=== PATIENT | male | born 1965 | race Hispanic/Latino ===

== ENCOUNTER 2019-05-28 05:55 | Day surgery (SDC) | payer OTHER ==
[2019-05-28] MEDS ORDERED: NACL 0.9% 1000 ML 1,000 ML IV SCH (07:00)
[2019-05-28] MEDS ORDERED: WATER FOR IRRIG STERILE ONE (07:25)
[2019-05-28] MEDS ORDERED: WATER FOR IRRIG STERILE IR ONE (07:25)
--- NOTE | 2019-05-28 07:44 | Anesthesia Consultation ---
Anesthesia Consult and Med Hx Date of service: 05/28/19 - Airway Anesthetic Teeth Evaluation: Good ROM Head & Neck: Adequate Mental/Hyoid Distance: Adequate Mallampati Class: Class III Intubation Access Assessment: Probably Good - Pulmonary Exam CTA: Yes - Cardiac Exam Cardiac Exam: No Murmur - Pre-Operative Health Status ASA Pre-Surgery Classification: ASA2 Proposed Anesthetic Plan: MAC - Pulmonary Hx Smoking: Yes (>10 years ago ) - Cardiovascular System Hx Hypertension: Yes
--- NOTE | 2019-05-28 07:52 | Anesthesia Day of Surgery ---
Anesthesia Day of Surgery - Day of Surgery Patient Examined: Yes Patient H&P Reviewed: Yes Patient is NPO: Yes
[2019-05-28] MEDS ORDERED: DIPRIVAN 10 MG/ML IV ONE ×2 (08:04)
[2019-05-28] MEDS ORDERED: XYLOCAINE 2% INFILTRATI ONE (08:08)
--- NOTE | 2019-05-28 08:51 | Procedure Note ---
Date of procedure: 05/28/19 Pre-op diagnosis: Colon Polyp Screening/ F/H/O Cancer (Brain Tumor-father) Post-op diagnosis: other (Multiple Recto-Sigmoid Polyps and Mild to Moderate Internal Hemorrhoid) Procedure: Colonoscopy with Cold Snare Polypectomy and Cold Biopsy Anesthesia: MAC Surgeon: LINN ELIAS Estimated blood loss: minimal Pathology: list Specimen disposition: to lab Condition: stable Disposition: observation (Avoid aspirin and NSAID for 5 days. Resume home medication and follow up in 1 to 2 weeks ([phone]).)
[2019-05-28 09:12] VITALS: BP 114/68
--- NOTE | 2019-05-28 09:14 | Operative Report ---
PROCEDURE: Colonoscopy with biopsy. INDICATIONS: A 53-year-old white male with a family history of cancer. The patient's father had brain tumor. The patient has never had a colonoscopy before. This is his initial colonoscopy done as part of colon polyp screening because of his age and his family history of cancer. DESCRIPTION OF PROCEDURE: The procedure was done after getting informed consent with MAC anesthesia. Initial rectal exam was unremarkable. Instrument was passed through the rectum onto the cecum, which was identified with ileocecal valve and the appendiceal orifice. Visualization was fair to good. The scope was retroflexed in the cecum. No additional pathology was noted in the retroflexed view. In the cecum, ascending colon, transverse colon, descending colon and most of the sigmoid showed normal mucosa. There was no evidence of any polyps, colitis or diverticular disease noted. There were multiple small polyps noted in the rectosigmoid area, however, were large enough for it to be removed by cold snare polypectomy. The rest were removed by cold biopsy with minimal bleeding. They were possibly hyperplastic in type and the rectum showed mild to moderate internal hemorrhoid on the retroverted view. Again, there was minimal bleeding associated with the procedure. No complications associated with the procedure. ASSESSMENT: Colon polyp screening, family history of cancer, multiple rectosigmoid polyps, possibly hyperplastic mild to moderate internal hemorrhoid. The patient will be asked to avoid aspirin and aspirin-related products for the next few days. Resume other medications and follow up in the office in 7-10 days' time. The procedure was done in the GI lab with assistance of the GI lab team, which included JOSE Youngblood as well as Valentin means and with the assistance of anesthesia. JOB# [id number] MANNY/ODILON
== END 2019-05-28 05:56 | disposition home or self-care (01) ==
LOC: GIO 05:55
DX: Z12.11 Encounter for screening for malignant neoplasm of colon (principal); K62.1 Rectal polyp; K63.5 Polyp of colon; K57.30 Diverticulosis of large intestine without perforation or abscess without bleeding; K64.8 Other hemorrhoids; E78.00 Pure hypercholesterolemia, unspecified; I10 Essential (primary) hypertension; Z80.0 Family history of malignant neoplasm of digestive organs; Z88.6 Allergy status to analgesic agent; Z79.899 Other long term (current) drug therapy; Z87.891 Personal history of nicotine dependence; Z88.8 Allergy status to other drugs, medicaments and biological substances; Z91.018 Allergy to other foods
CPT/HCPCS: 45380; 45385; 88305; J2704; J7030